=== PATIENT | female | born 1970 | race Caucasian/White ===

== ENCOUNTER 2020-12-14 00:42 | Emergency (ER) | payer BC, OTHER ==
[~2020-12-14 00:42] MED LIST: METOPROLOL TART25 MG PO; TOPROL XL25 MG PO
[2020-12-14 00:53] LABS: HEMOGLOBIN 14.5 gm/dl (12.3-15.3); RED BLOOD COUNT 4.75 M/UL (4.00-5.10)
[2020-12-14 01:29] LABS: BUN/CREATININE RATIO 26 (0-10)
[2020-12-14] MEDS ORDERED: PROTONIX40 MG PO (03:27)
== END 2020-12-14 03:55 | disposition home or self-care (01) ==
LOC: ER1 00:42
PROVIDERS: Internal Medicine
DX: K29.70 Gastritis, unspecified, without bleeding (principal); R55 Syncope and collapse; Z90.49 Acquired absence of other specified parts of digestive tract
CPT/HCPCS: 70450; 71045; 80053; 82550; 82553; 83690; 83874; 84484; 85025; 93005; 96374; 99284; C9113; Q9967